=== PATIENT | male | born 1930 | race Caucasian/White ===

== ENCOUNTER 2017-02-04 14:24 | Emergency (ER) | payer MEDICARE ==
[2017-02-04 16:20] LABS: ABSOLUTE NEUTROPHIL COUNT 2.8 K/mm3 (1.8-7.7); BASO % 0.4 % (0.2-1.0); EOS # 0.1 (0.0-0.5); EOS % 1.6 % (0.9-2.9); HEMATOCRIT 34.1 % (32.0-52.0); HEMOGLOBIN 11.1 gm/l (14.0-18.0); IMM NEUT% 0.2 % (0-1); LYMPH % 21.8 % (15-45); MEAN CORPUSCULAR HEMOGLOBIN 33.5 pg (27.0-31.0); MEAN CORPUSCULAR HGB CONC 32.6 g/dl (33.0-37.0); MEAN PLATELET VOLUME 10.3 fl (7.4-10.4); MONO # 0.6 (0.0-0.8); MONO % 12.8 % (4-12); NEUT % 63.2 % (43-75); PLATELET COUNT 147 K/mm3 (130-400); RED CELL DISTRIBUTION WIDTH 13.4 % (11.5-14.5)
[2017-02-04 16:37] LABS: ALB/GLOB RATIO 1.5 (>1.0); ALBUMIN 4.1 gm/dL (3.5-5.7); ALT/SGPT 11 U/L (7-52); BLOOD UREA NITROGEN 44 mg/dL (7-25); BUN/CREATININE RATIO 21 (6-20); C-REACTIVE PROTEIN < 0.3 mg/dl (<1.0); CALCIUM 8.8 mg/dL (8.6-10.3); GLOMERULAR FILTRATION RATE 30 mL/min (60-75)
--- NOTE | 2017-02-04 17:59 | US ---
DUPLEX SCAN CAROTID BILATERAL COMPARISON: None. 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 Technique: Grayscale and color Doppler ultrasound examination of the carotid and vertebral artery systems bilaterally. Maximum peak systolic velocity (PSV) / end diastolic velocity (EDV) measurements were obtained. Carotid duplex criteria: Internal carotid artery stenosis is determined using the [place] Symptomatic Carotid Endarterectomy Trial method. 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 Left Carotid System Velocities (cm/s) Left Common Carotid Artery Proximal/Mid: 129/14 Left Common Carotid Artery Distal: 108/19 Left Bulb: 115/16 Left Internal Carotid Artery Proximal: 87/15 Left Internal Carotid Artery Mid: 98/27 Left Internal Carotid Artery Distal: 96/27 Left External Carotid Artery (LECA): 100 Left Vertebral Artery: 60 cm/s Anterograde with normal waveform Left ICA/CCA: 0.90 Left grayscale and waveform data: Diffuse moderate plaquing. Other findings: None. IMPRESSION: Society of Radiologists in Ultrasound (SRU) consensus statement (Radiology 2003; 229:340-346. DOI 10.1148/radiol.2135764236) was used to estimate internal carotid artery stenosis. Right internal carotid artery: 50 percent to 69 percent stenosis. Left internal carotid artery: Less than 50 percent stenosis. The vertebral arteries: Antegrade flow with normal waveforms bilaterally. The report was sent to the emergency department electronic medical record system 02/04/2017 at 17:59
== END 2017-02-04 18:40 | disposition home or self-care (01) ==
LOC: ED 14:24
DX: H34.9 Unspecified retinal vascular occlusion (principal); D75.89 Other specified diseases of blood and blood-forming organs; I10 Essential (primary) hypertension; E11.9 Type 2 diabetes mellitus without complications; Z79.84 Long term (current) use of oral hypoglycemic drugs